=== PATIENT | male | born 1960 | race Caucasian/White ===

== ENCOUNTER 2016-10-14 08:16 | Inpatient (IN) | payer OTHER ==
[~2016-10-14] VITALS: Ht 182.9 cm; Wt 132.7 kg
[~2016-10-14 08:16] MED LIST: ALLOPURINOL300 MG PO; AMOX TR-K CLV1 EAC4 PO; ARTHROTEC 751 TABLET PO; AUGMENTIN875 MG PO; BACTRIM,SEPT1 TABLET PO; CEPHALEXIN500 MG PO; CIPRO250 MG PO; CYCLOBENZAPRINE10 MG PO; DICLOFENAC-MIS1 EAC3 PO; DOCUSATE SODIU100 MG PO; FERROUS SULFAT325 MG PO; FLORASTOR250 MG PO; FUROSEMIDE40 MG PO; FUROSEMIDE80 MG PO; GABAPENTIN300 MG PO; GLUCOPHAGE XR,500 MG PO; GLUCOPHAGE1000 MG PO; GLUCOPHAGE500 MG PO; HUMULIN 70100 UNIT/2 SC; HUMULIN 70100 UNIT/3 SC; KEFLEX500 MG PO; LASIX80 MG PO; LISINOPRIL5 MG PO; LOPRESSOR25 MG PO; METFORMIN HCL500 M1 PO; METFORMIN HCL500 MG PO; METOPROLOL TART25 MG PO; METOPROLOL TART50 MG PO; NAPROSYN500 MG; NOVOLIN,HU100 UNITS/ SC; NOVOLOG MI100 UNIT/2 SQ; NOVOLOG MI100 UNIT/M PO; NOVOLOG MI100 UNIT/M SC; OMEPRAZOLE20 M2 PO; OMEPRAZOLE20 MG PO; OXYCODONE HCL5 MG PO; PANTOPRAZOLE SO40 MG PO; PERCOCET 10/1 TABLET PO; PERCOCET 5/31 TABLET PO; PHENERGAN25 MG PR; PRILOSEC20 MG PO; PRINIVIL5 MG PO; ROCEPHIN 2 GM VI2 GM IV; ROCEPHIN1000 MG IM; ROCEPHIN2 GM/50 ML IV; ROXICODONE5 MG PO; SERTRALINE HCL100 MG PO; SERTRALINE HCL50 MG PO; VANCOMYCIN1 GM/150 M IV; XARELTO20 MG PO; ZESTRIL,PRINIVIL5 MG PO; ZOFRAN4 MG PO; ZYLOPRIM300 MG PO
[2016-10-14 11:30] LABS: EOSINOPHIL (%) 0.2 % (0-5); HEMATOCRIT 36.5 % (38.0-50.0); IMMATURE GRANULOCYTE (%) 0.4 % (0.0-0.7); IMMATURE GRANULOCYTE COUNT 0.6 K/uL; LYMPHOCYTE COUNT 1.3 K/uL (1.0-2.8); MCH 27.3 PG (29.0-34.0); MCV 80.4 FL (86-99); MEAN PLAT.VOLUME 10.5 uM^3 (9.0-12.4); MONOCYTE (%) 3.7 % (3-12); MONOCYTE COUNT 0.6 K/uL (0-0.8); NEUTROPHIL (%) 87.6 % (45-76); NEUTROPHIL COUNT 14.3 K/uL (1.8-6.4); PLATELET COUNT 181 K/uL (156-360); RBC DIS.WIDTH-SD 36.6 % (39-53); RED BLOOD COUNT 4.54 M/uL (4.00-5.50); WHITE BLOOD COUNT 16.3 K/uL (4.1-10.2)
[2016-10-14 11:35] LABS: CHLORIDE 100 mEq/L (99-109); POTASSIUM 4.2 mEq/L (3.7-5.4)
[2016-10-14 11:36] LABS: SODIUM 135 mEq/L (136-147)
[2016-10-14 11:39] LABS: ANION GAP 11 MEQ/L (2-14)
[2016-10-14 11:40] LABS: TOTAL BILIRUBIN 0.7 mg/dL (0.0-1.0)
[2016-10-14 11:41] LABS: ALKALINE PHOSPHATASE 100 IU/L (3-129); GFR ESTIMATE (CALCULATED) 42 mL/min/
[2016-10-14 11:43] LABS: UREA NITROGEN (BUN) 26 mg/dL (9-23)
[2016-10-14 11:44] LABS: GLUCOSE 421 mg/dL (70-99)
[2016-10-14 13:01] LABS: ADD MIUA? YES; BILIRUBIN NEGATIVE; BLOOD MODERATE; COLOR STRAW ((YELLOW)); GLUCOSE (STRIP) >=500; KETONES NEGATIVE; LEUKOCYTES NEGATIVE; NITRITE NEGATIVE; PROTEIN (STRIP) NEGATIVE; SPECIFIC GRAVITY 1.007 (1.000-1.030); UROBILINOGEN 0.2 MG/DL (0.2-1.0)
[2016-10-14 13:08] LABS: BACTERIA NONE SEEN /HPF; EPITHELIAL CELLS NONE SEEN /HPF; HYALINE CASTS 0-5 /LPF; MUCUS TRACE /LPF; RED BLOOD CELLS 0-5 /HPF (0-5); UCUL ADDED? NO; UNCLASSIFIED CASTS 0-5 /LPF; WHITE BLOOD CELLS 0-5 /HPF (0-5)
[2016-10-14 13:09] LABS: CASTS PRESENT /LPF; CRYSTALS NONE SEEN
[2016-10-14] MEDS ORDERED: METOPROLOL TART25 MG PO (14:53)
[2016-10-14] MEDS ORDERED: METFORMIN HCL500 M1 PO (14:54)
[2016-10-14] MEDS ORDERED: LYRICA150 MG PO ×2 (14:55)
[2016-10-14] MEDS ORDERED: TUMERIC PO (14:55)
[2016-10-14] MEDS ORDERED: ZYVOX600 MG PO (14:55)
[2016-10-14 15:38] LABS: POINT-OF-CARE METER ID UU13113702
[2016-10-14 16:51] VITALS: BP 108/59
[2016-10-14 19:50] VITALS: BP 138/87
[2016-10-14 22:16] LABS: POINT-OF-CARE METER ID UU13113717
[2016-10-15 00:24] VITALS: BP 107/61
[2016-10-15 04:06] VITALS: BP 113/56
[2016-10-15 06:00] LABS: HEMATOCRIT 34.3 % (38.0-50.0); MCH 26.5 PG (29.0-34.0); MCHC 32.1 G/DL (30.0-36.0); MCV 82.7 FL (86-99); MEAN PLAT.VOLUME 9.9 uM^3 (9.0-12.4); PLATELET COUNT 142 K/uL (156-360); RBC DIS.WIDTH-CV 13.1 % (11.8-14.6); RBC DIS.WIDTH-SD 39.7 % (39-53); RED BLOOD COUNT 4.15 M/uL (4.00-5.50)
[2016-10-15 06:01] LABS: WHITE BLOOD COUNT 7.5 K/uL (4.1-10.2)
[2016-10-15 06:10] LABS: ANION GAP 7 MEQ/L (2-14); CHLORIDE 101 MEQ/L (99-109); GFR ESTIMATE (CALCULATED) 48 mL/min/; GLUCOSE 120 mg/dL (70-99); POTASSIUM 3.6 MEQ/L (3.7-5.4); SAMPLE HEMOLYSIS CHECK 0; SAMPLE ICTERIC CHECK 0; SAMPLE LIPEMIA CHECK 0; SODIUM 137 MEQ/L (136-147); UREA NITROGEN (BUN) 27 mg/dL (9-23)
[2016-10-15 07:28] LABS: POINT-OF-CARE METER ID UU13113717
[2016-10-15 08:03] VITALS: BP 103/70
[2016-10-15 13:41] LABS: POINT-OF-CARE METER ID UU13113717
[2016-10-15 15:58] VITALS: BP 123/62
[2016-10-15 19:43] VITALS: BP 159/75
[2016-10-15 22:38] LABS: POINT-OF-CARE METER ID UU13113717
[2016-10-15 22:59] VITALS: BP 126/60
[2016-10-16 03:20] VITALS: BP 113/59
[2016-10-16 08:30] VITALS: BP 151/84
[2016-10-16 11:30] VITALS: BP 158/72
[2016-10-16 12:03] LABS: POINT-OF-CARE METER ID UU14188577
[2016-10-16 16:27] VITALS: BP 143/68
[2016-10-16 19:41] VITALS: BP 127/62
[2016-10-16 23:39] VITALS: BP 115/70
[2016-10-17 03:49] VITALS: BP 161/84
[2016-10-17 08:10] VITALS: BP 159/88
[2016-10-17] MEDS ORDERED: LASIX40 MG PO (08:20)
== END 2016-10-17 13:51 | disposition home or self-care (01) | DRG 603 ==
LOC: EME 08:16 → EDOF 14:59 → 3EAST 14:59
PROVIDERS: Internal Medicine; Physician Assistant
DX: L03.115 Cellulitis of right lower limb (principal); E11.43 Type 2 diabetes mellitus with diabetic autonomic (poly)neuropathy; E11.610 Type 2 diabetes mellitus with diabetic neuropathic arthropathy; E11.65 Type 2 diabetes mellitus with hyperglycemia; E11.621 Type 2 diabetes mellitus with foot ulcer; L97.909 Non-pressure chronic ulcer of unspecified part of unspecified lower leg with unspecified severity; I89.0 Lymphedema, not elsewhere classified; I87.2 Venous insufficiency (chronic) (peripheral); I12.9 Hypertensive chronic kidney disease with stage 1 through stage 4 chronic kidney disease, or unspecified chronic kidney disease; N18.3 Chronic kidney disease, stage 3 (moderate); G47.33 Obstructive sleep apnea (adult) (pediatric); I48.2 Chronic atrial fibrillation; K22.70 Barrett's esophagus without dysplasia; Z86.14 Personal history of Methicillin resistant Staphylococcus aureus infection; E66.9 Obesity, unspecified; Z68.39 Body mass index [BMI] 39.0-39.9, adult; Z79.01 Long term (current) use of anticoagulants; Z79.4 Long term (current) use of insulin
CPT/HCPCS: 73700; 78315; 78999; 80048; 80053; 81003; 82948; 83605; 85025; 85027; 87040; 93971; A9503; J0690; J1170; J1815; J2543; J3010; J7030; J7050; J7120

== ENCOUNTER 2017-02-04 09:35 | Inpatient (IN) | payer OTHER ==
[~2017-02-04] VITALS: Ht 182.9 cm; Wt 140.7 kg
[~2017-02-04 09:35] MED LIST changes: +LASIX40 MG PO; +LYRICA150 MG PO; +TUMERIC PO; +ZYVOX600 MG PO
[2017-02-04 10:19] LABS: EOSINOPHIL (%) 0 % (0-5); IMMATURE GRANULOCYTE (%) 0.6 % (0.0-0.7); IMMATURE GRANULOCYTE COUNT 0.1 K/uL; INSTRUMENT ABS NEUTROPHIL CT 15.7 K/uL; LYMPHOCYTE COUNT 0.4 K/uL (1.0-2.8); MCH 26.3 PG (29.0-34.0); MCHC 32.6 G/DL (30.0-36.0); MCV 80.9 FL (86-99); MEAN PLAT.VOLUME 11.3 uM^3 (9.0-12.4); MONOCYTE COUNT 0.9 K/uL (0-0.8); NEUTROPHIL (%) 92.1 % (45-76); NEUTROPHIL COUNT 15.7 K/uL (1.8-6.4); PLATELET COUNT 137 K/uL (156-360); RBC DIS.WIDTH-CV 13.9 % (11.8-14.6); RBC DIS.WIDTH-SD 40.5 % (39-53); RED BLOOD COUNT 4.82 M/uL (4.00-5.50)
[2017-02-04 10:36] LABS: CHLORIDE 98 mEq/L (99-109); POTASSIUM 4.9 mEq/L (3.7-5.4); SODIUM 134 mEq/L (136-147)
[2017-02-04 10:39] LABS: ANION GAP 14 MEQ/L (2-14)
[2017-02-04 10:42] LABS: GFR ESTIMATE (CALCULATED) 42 mL/min/
[2017-02-04 10:43] LABS: UREA NITROGEN (BUN) 27 mg/dL (9-23)
[2017-02-04 11:09] LABS: GLUCOSE 514 mg/dL (70-99)
[2017-02-04 11:27] LABS: ADD MIUA? YES; BILIRUBIN NEGATIVE; BLOOD MODERATE; COLOR YELLOW ((YELLOW)); GLUCOSE (STRIP) >=500; KETONES 20; LEUKOCYTES NEGATIVE; NITRITE NEGATIVE; PROTEIN (STRIP) >=500; SPECIFIC GRAVITY 1.029 (1.000-1.030); UROBILINOGEN 0.2 MG/DL (0.2-1.0)
[2017-02-04 11:33] LABS: BACTERIA NONE SEEN /HPF; EPITHELIAL CELLS NONE SEEN /HPF; MUCUS NONE SEEN /LPF; RED BLOOD CELLS 15-20 /HPF (0-5); UCUL ADDED? NO; WHITE BLOOD CELLS 0-5 /HPF (0-5)
[2017-02-04] MEDS ORDERED: FUROSEMIDE80 MG PO (13:49)
[2017-02-04] MEDS ORDERED: TURMERIC500 MG PO (13:52)
[2017-02-04 14:12] LABS: POINT-OF-CARE METER ID UU13113702
[2017-02-04 17:03] VITALS: BP 165/94
[2017-02-04 20:11] VITALS: BP 147/79
[2017-02-04 20:41] LABS: POINT-OF-CARE METER ID UU14174225
[2017-02-04 23:37] VITALS: BP 112/65
[2017-02-05] VITALS (7 sets, daily range): BP systolic 111–194; BP diastolic 60–98
[2017-02-05 02:29] LABS: POINT-OF-CARE METER ID UU14188625
[2017-02-05 05:21] LABS: EOSINOPHIL (%) 0 % (0-5); HEMATOCRIT 34.8 % (38.0-50.0); IMMATURE GRANULOCYTE (%) 0.9 % (0.0-0.7); IMMATURE GRANULOCYTE COUNT 0.1 K/uL; INSTRUMENT ABS NEUTROPHIL CT 6.6 K/uL; LYMPHOCYTE COUNT 0.5 K/uL (1.0-2.8); MCH 26.3 PG (29.0-34.0); MCHC 32.2 G/DL (30.0-36.0); MCV 81.7 FL (86-99); MEAN PLAT.VOLUME 10.7 uM^3 (9.0-12.4); MONOCYTE (%) 5.6 % (3-12); MONOCYTE COUNT 0.4 K/uL (0-0.8); NEUTROPHIL COUNT 6.6 K/uL (1.8-6.4); PLATELET COUNT 125 K/uL (156-360); RBC DIS.WIDTH-CV 13.8 % (11.8-14.6); RBC DIS.WIDTH-SD 41.1 % (39-53); RED BLOOD COUNT 4.26 M/uL (4.00-5.50)
[2017-02-05 06:00] LABS: WHITE BLOOD COUNT 7.6 K/uL (4.1-10.2)
[2017-02-05 06:55] LABS: ANION GAP 12 MEQ/L (2-14); CHLORIDE 96 MEQ/L (99-109); GFR ESTIMATE (CALCULATED) 48 mL/min/; GLUCOSE 347 mg/dL (70-99); SAMPLE HEMOLYSIS CHECK 0; SAMPLE ICTERIC CHECK 0; SAMPLE LIPEMIA CHECK 0; SODIUM 129 MEQ/L (136-147); UREA NITROGEN (BUN) 24 mg/dL (9-23)
[2017-02-05 07:10] LABS: POTASSIUM 3.9 MEQ/L (3.7-5.4)
[2017-02-05 09:09] LABS: POINT-OF-CARE METER ID UU14174225
[2017-02-05 10:35] LABS: POINT-OF-CARE METER ID UU13113702
[2017-02-05 10:56] LABS: POINT-OF-CARE METER ID UU14174225; POINT-OF-CARE USER ID STWAMT
[2017-02-05 12:56] LABS: METH RESISTANT S AUREUS PCR NEGATIVE (NEGATIVE)
[2017-02-05 13:06] LABS: PROBE CHECK PASS; SPECIMEN PROCESSING CONTROL PASS
[2017-02-06] VITALS (11 sets, daily range): BP systolic 107–190; BP diastolic 58–94
[2017-02-06 05:37] LABS: HEMATOCRIT 37.2 % (38.0-50.0); MCH 27.6 PG (29.0-34.0); MCHC 33.1 G/DL (30.0-36.0); MCV 83.4 FL (86-99); PLATELET COUNT 128 K/uL (156-360); RBC DIS.WIDTH-CV 13.9 % (11.8-14.6); RBC DIS.WIDTH-SD 42.2 % (39-53); RED BLOOD COUNT 4.46 M/uL (4.00-5.50); WHITE BLOOD COUNT 6.9 K/uL (4.1-10.2)
[2017-02-06 06:05] LABS: ANION GAP 13 MEQ/L (2-14); CHLORIDE 100 MEQ/L (99-109); GFR ESTIMATE (CALCULATED) 42 mL/min/; GLUCOSE 202 mg/dL (70-99); POTASSIUM 3.6 MEQ/L (3.7-5.4); SAMPLE HEMOLYSIS CHECK 0; SAMPLE ICTERIC CHECK 0; SAMPLE LIPEMIA CHECK 0; UREA NITROGEN (BUN) 28 mg/dL (9-23)
[2017-02-06 06:06] LABS: SODIUM 137 MEQ/L (136-147)
[2017-02-06 11:50] LABS: TROP-I INTERPRETATION NEGATIVE; TROPONIN-I 0.11 ng/mL (0.0-0.30)
[2017-02-06 17:44] LABS: TROP-I INTERPRETATION NEGATIVE; TROPONIN-I 0.14 ng/mL (0.0-0.30)
[2017-02-06 19:14] LABS: EOSINOPHIL (%) 0.2 % (0-5); HEMATOCRIT 37.7 % (38.0-50.0); IMMATURE GRANULOCYTE (%) 0.8 % (0.0-0.7); IMMATURE GRANULOCYTE COUNT 0.1 K/uL; INSTRUMENT ABS NEUTROPHIL CT 5.5 K/uL; LYMPHOCYTE COUNT 0.4 K/uL (1.0-2.8); MCH 26.6 PG (29.0-34.0); MCHC 32.4 G/DL (30.0-36.0); MCV 82.1 FL (86-99); MEAN PLAT.VOLUME 10.7 uM^3 (9.0-12.4); MONOCYTE (%) 4.2 % (3-12); MONOCYTE COUNT 0.3 K/uL (0-0.8); NEUTROPHIL (%) 88.7 % (45-76); NEUTROPHIL COUNT 5.5 K/uL (1.8-6.4); PLATELET COUNT 115 K/uL (156-360); RBC DIS.WIDTH-CV 13.9 % (11.8-14.6); RBC DIS.WIDTH-SD 41.3 % (39-53); RED BLOOD COUNT 4.59 M/uL (4.00-5.50); WHITE BLOOD COUNT 6.2 K/uL (4.1-10.2)
[2017-02-06 19:23] LABS: CHLORIDE 101 mEq/L (99-109); SODIUM 135 mEq/L (136-147)
[2017-02-06 19:25] LABS: GLUCOSE 269 mg/dL (70-99)
[2017-02-06 19:26] LABS: ANION GAP 8 MEQ/L (2-14)
[2017-02-06 19:29] LABS: GFR ESTIMATE (CALCULATED) 39 mL/min/; UREA NITROGEN (BUN) 29 mg/dL (9-23)
[2017-02-06 23:49] LABS: POINT-OF-CARE METER ID UU14174217; POINT-OF-CARE USER ID LABHNS84
[2017-02-06 23:57] LABS: TROP-I INTERPRETATION INDETERMINATE; TROPONIN-I 0.33 ng/mL (0.0-0.30)
[2017-02-07] VITALS (13 sets, daily range): BP systolic 109–153; BP diastolic 52–106
[2017-02-07 02:05] LABS: METH RESISTANT S AUREUS PCR NEGATIVE (NEGATIVE)
[2017-02-07 02:11] LABS: PROBE CHECK PASS; SPECIMEN PROCESSING CONTROL PASS
[2017-02-07 08:32] LABS: HEMATOCRIT 33.7 % (38.0-50.0); MCH 27.6 PG (29.0-34.0); MCHC 32.6 G/DL (30.0-36.0); MCV 84.5 FL (86-99); MEAN PLAT.VOLUME 11.1 uM^3 (9.0-12.4); PLATELET COUNT 102 K/uL (156-360); RBC DIS.WIDTH-CV 14.1 % (11.8-14.6); RBC DIS.WIDTH-SD 43.6 % (39-53); RED BLOOD COUNT 3.99 M/uL (4.00-5.50); WHITE BLOOD COUNT 8.7 K/uL (4.1-10.2)
[2017-02-07 08:48] LABS: ANION GAP 10 MEQ/L (2-14); CHLORIDE 102 MEQ/L (99-109); GFR ESTIMATE (CALCULATED) 48 mL/min/; GLUCOSE 207 mg/dL (70-99); POTASSIUM 3.9 MEQ/L (3.7-5.4); SAMPLE HEMOLYSIS CHECK 0; SAMPLE ICTERIC CHECK 0; SAMPLE LIPEMIA CHECK 0; SODIUM 137 MEQ/L (136-147); UREA NITROGEN (BUN) 28 mg/dL (9-23)
[2017-02-07 15:18] LABS: TROP-I INTERPRETATION NEGATIVE; TROPONIN-I 0.09 ng/mL (0.0-0.30)
[2017-02-07 16:52] LABS: POINT-OF-CARE METER ID UU14174217
[2017-02-07 22:00] LABS: POINT-OF-CARE METER ID UU13113731; POINT-OF-CARE USER ID LABHNS84
[2017-02-08] VITALS (12 sets, daily range): BP systolic 108–151; BP diastolic 55–94
[2017-02-08 09:35] LABS: POINT-OF-CARE METER ID UU14174217
[2017-02-08 10:42] LABS: HEMATOCRIT 35.2 % (38.0-50.0); MCH 26.3 PG (29.0-34.0); MCHC 31.3 G/DL (30.0-36.0); MEAN PLAT.VOLUME 10.8 uM^3 (9.0-12.4); PLATELET COUNT 144 K/uL (156-360); RBC DIS.WIDTH-CV 14.1 % (11.8-14.6); RBC DIS.WIDTH-SD 43.4 % (39-53); RED BLOOD COUNT 4.19 M/uL (4.00-5.50)
[2017-02-08 11:03] LABS: ANION GAP 10 MEQ/L (2-14); CHLORIDE 101 MEQ/L (99-109); GFR ESTIMATE (CALCULATED) 56 mL/min/; GLUCOSE 164 mg/dL (70-99); POTASSIUM 3.6 MEQ/L (3.7-5.4); SAMPLE HEMOLYSIS CHECK 0; SAMPLE ICTERIC CHECK 0; SAMPLE LIPEMIA CHECK 0; SODIUM 137 MEQ/L (136-147); UREA NITROGEN (BUN) 31 mg/dL (9-23)
[2017-02-08 12:32] LABS: POINT-OF-CARE METER ID UU14174217
[2017-02-08 17:58] LABS: POINT-OF-CARE METER ID UU13113725
[2017-02-08 20:50] LABS: POINT-OF-CARE METER ID UU13113725
[2017-02-09 03:05] VITALS: BP 136/70
[2017-02-09 07:05] VITALS: BP 158/89
[2017-02-09 11:05] VITALS: BP 138/68
[2017-02-09 15:17] VITALS: BP 134/66
[2017-02-09 16:37] LABS: POINT-OF-CARE METER ID UU13113725
[2017-02-09 23:20] VITALS: BP 145/73
[2017-02-10 02:50] VITALS: BP 126/68
[2017-02-10 06:50] LABS: HEMATOCRIT 36.7 % (38.0-50.0); MCH 26.7 PG (29.0-34.0); MCHC 31.9 G/DL (30.0-36.0); MCV 83.8 FL (86-99); MEAN PLAT.VOLUME 10.4 uM^3 (9.0-12.4); PLATELET COUNT 218 K/uL (156-360); RBC DIS.WIDTH-SD 43.2 % (39-53); RED BLOOD COUNT 4.38 M/uL (4.00-5.50); WHITE BLOOD COUNT 9.5 K/uL (4.1-10.2)
[2017-02-10 07:17] LABS: ANION GAP 12 MEQ/L (2-14); CHLORIDE 108 MEQ/L (99-109); GFR ESTIMATE (CALCULATED) > 59 mL/min/; POTASSIUM 3.9 MEQ/L (3.7-5.4); SAMPLE HEMOLYSIS CHECK 0; SAMPLE ICTERIC CHECK 0; SAMPLE LIPEMIA CHECK 0; UREA NITROGEN (BUN) 19 mg/dL (9-23)
[2017-02-10 07:21] LABS: ABS NEUTROPHIL COUNT 6.9; ATYPICAL LYMPHOCYTE 0.9 %; BAND NEUTROPHILS 1.8 % (0-8.0); EOSINOPHIL ABS CT 0.3; EOSINOPHILS 2.7 % (0-5.0); INSTRUMENT ABS NEUTROPHIL CT 6.3 K/uL; LYMPHOCYTES 17.8 % (15.0-45.0); METAMYELOCYTES 2.7 %; MYELOCYTES 0.9 %; PLAT.SUFFICIENCY ADEQUATE; SEG.NEUTROPHILS 70.5 % (46.0-76.0)
[2017-02-10 07:24] LABS: GLUCOSE 94 mg/dL (70-99); SODIUM 144 MEQ/L (136-147)
[2017-02-10 08:15] VITALS: BP 166/90
[2017-02-10 12:00] VITALS: BP 167/73
[2017-02-10 15:33] VITALS: BP 170/90
[2017-02-10 16:15] LABS: POINT-OF-CARE METER ID UU13113725
[2017-02-10 17:54] LABS: POINT-OF-CARE METER ID UU13113675; POINT-OF-CARE USER ID ADMKMM76
[2017-02-10 18:26] VITALS: BP 129/97
[2017-02-10 21:48] LABS: POINT-OF-CARE METER ID UU13113725
[2017-02-11 05:03] LABS: POINT-OF-CARE METER ID UU13113725
[2017-02-11 05:35] LABS: HEMATOCRIT 32.4 % (38.0-50.0); MCHC 31.2 G/DL (30.0-36.0); MCV 83.5 FL (86-99); MEAN PLAT.VOLUME 9.7 uM^3 (9.0-12.4); NRBC (%) 0.2 /100 WBC (0-0); PLATELET COUNT 239 K/uL (156-360); RBC DIS.WIDTH-CV 13.8 % (11.8-14.6); RBC DIS.WIDTH-SD 42.4 % (39-53); RED BLOOD COUNT 3.88 M/uL (4.00-5.50); WHITE BLOOD COUNT 9.1 K/uL (4.1-10.2)
[2017-02-11 06:04] LABS: ANION GAP 12 MEQ/L (2-14); CHLORIDE 108 MEQ/L (99-109); GFR ESTIMATE (CALCULATED) > 59 mL/min/; GLUCOSE 106 mg/dL (70-99); POTASSIUM 3.8 MEQ/L (3.7-5.4); SAMPLE HEMOLYSIS CHECK 0; SAMPLE ICTERIC CHECK 0; SAMPLE LIPEMIA CHECK 0; SODIUM 143 MEQ/L (136-147); UREA NITROGEN (BUN) 16 mg/dL (9-23)
[2017-02-11 06:53] LABS: ABS NEUTROPHIL COUNT 5.9; ANISOCYTOSIS 1+; ATYPICAL LYMPHOCYTE 3.5 %; BASOPHILS 0.9 %; EOSINOPHIL ABS CT 0.5; EOSINOPHILS 5.2 % (0-5.0); INSTRUMENT ABS NEUTROPHIL CT 5.7 K/uL; LYMPHOCYTES 13.9 % (15.0-45.0); MACROCYTES 1+; MICROCYTOSIS 1+; MYELOCYTES 2.6 %; OVALOCYTES 1+; PLAT.SUFFICIENCY ADEQUATE; SEG.NEUTROPHILS 64.3 % (46.0-76.0)
[2017-02-11 07:51] VITALS: BP 148/78
[2017-02-11 11:40] LABS: POINT-OF-CARE METER ID UU13113725
[2017-02-11] MEDS ORDERED: SUMATRIPTAN SUC25 MG PO (14:11)
[2017-02-11] MEDS ORDERED: NORVASC5 MG PO (14:12)
[2017-02-11] MEDS ORDERED: FLAGYL500 MG PO (14:18)
[2017-02-11] MEDS ORDERED: ANCEF,KEFZ2 GM/100 M IV (14:19)
[2017-02-11 15:58] LABS: POINT-OF-CARE METER ID UU13113725
[2017-02-11 16:19] VITALS: BP 130/69
== END 2017-02-11 17:03 | disposition home or self-care (01) | DRG 854 ==
LOC: EME 09:35 → EDOF 13:27 → 5SOUTH 13:27 → 4EAST 02-06 19:06 → 4WEST 02-06 21:16 → 5EAST 02-08 16:46
PROVIDERS: Emergency Medicine; Hospitalist; Internal Medicine; Internal Medicine Infectious Disease; Physician Assistant Medical
PROC: 0JBQ0ZZ Excision of Right Foot Subcutaneous Tissue and Fascia, Open Approach (ICD-10-PCS; principal; 2017-02-10)
DX: A41.9 Sepsis, unspecified organism (principal); R65.20 Severe sepsis without septic shock; L03.115 Cellulitis of right lower limb; E11.621 Type 2 diabetes mellitus with foot ulcer; S91.301A Unspecified open wound, right foot, initial encounter; L02.611 Cutaneous abscess of right foot; L97.509 Non-pressure chronic ulcer of other part of unspecified foot with unspecified severity; L97.809 Non-pressure chronic ulcer of other part of unspecified lower leg with unspecified severity; E11.628 Type 2 diabetes mellitus with other skin complications; M14.679 Charcot's joint, unspecified ankle and foot; E11.622 Type 2 diabetes mellitus with other skin ulcer; E11.42 Type 2 diabetes mellitus with diabetic polyneuropathy; E11.65 Type 2 diabetes mellitus with hyperglycemia; E11.22 Type 2 diabetes mellitus with diabetic chronic kidney disease; I12.9 Hypertensive chronic kidney disease with stage 1 through stage 4 chronic kidney disease, or unspecified chronic kidney disease; L84 Corns and callosities; M10.9 Gout, unspecified; E66.01 Morbid (severe) obesity due to excess calories; Z68.41 Body mass index [BMI] 40.0-44.9, adult; I89.0 Lymphedema, not elsewhere classified; Z79.01 Long term (current) use of anticoagulants; I48.2 Chronic atrial fibrillation; I87.8 Other specified disorders of veins; I87.2 Venous insufficiency (chronic) (peripheral); K21.9 Gastro-esophageal reflux disease without esophagitis; G43.009 Migraine without aura, not intractable, without status migrainosus; G47.33 Obstructive sleep apnea (adult) (pediatric); N18.3 Chronic kidney disease, stage 3 (moderate); B95.62 Methicillin resistant Staphylococcus aureus infection as the cause of diseases classified elsewhere; Z79.4 Long term (current) use of insulin; Z86.14 Personal history of Methicillin resistant Staphylococcus aureus infection; Z82.49 Family history of ischemic heart disease and other diseases of the circulatory system; Z80.1 Family history of malignant neoplasm of trachea, bronchus and lung
CPT/HCPCS: 70450; 71010; 71020; 73630; 73700; 76937; 78315; 80048; 80048 91; 80202; 81003; 82948; 83605; 84484; 85025; 85027; 85651; 86140; 87040; 87070; 87075; 87076; 87077; 87116; 87147; 87185; 87186; 87205; 87641; 87801; 93005; 93970; 94799; 99281; 99285; A6260; A9503; J0690; J1200; J1815; J1885; J2250; J2405; J2543; J2765; J3010; J3370; J7030; J7050

== ENCOUNTER 2017-06-22 11:30 | Observation (INO) | payer OTHER ==
[~2017-06-22] VITALS: Ht 182.9 cm; Wt 145.0 kg
[~2017-06-22 11:30] MED LIST changes: +ANCEF,KEFZ2 GM/100 M IV; +FLAGYL500 MG PO; +NORVASC5 MG PO; +SUMATRIPTAN SUC25 MG PO; +TURMERIC500 MG PO
[2017-06-22 12:27] LABS: HEMATOCRIT 35.5 % (38.0-50.0); MCH 26.9 PG (29.0-34.0); MCV 81.6 FL (86-99); PLATELET COUNT 158 K/uL (156-360); RBC DIS.WIDTH-CV 13.7 % (11.8-14.6); RBC DIS.WIDTH-SD 40.6 % (39-53); RED BLOOD COUNT 4.35 M/uL (4.00-5.50)
[2017-06-22 12:38] LABS: CHLORIDE 102 mEq/L (99-109); POTASSIUM 4.1 mEq/L (3.7-5.4); SODIUM 140 mEq/L (136-147)
[2017-06-22 12:40] LABS: GLUCOSE 321 mg/dL (70-99)
[2017-06-22 12:41] LABS: INTER. NORMALIZED RATIO 1.2; PROTHROMBIN TIME 13.7 SEC (10.2-12.9)
[2017-06-22 12:41] LABS: ANION GAP 16 MEQ/L (2-14)
[2017-06-22 12:44] LABS: GFR ESTIMATE (CALCULATED) > 59 mL/min/
[2017-06-22 12:44] LABS: PTT 33.6 SEC (25-37)
[2017-06-22 12:45] LABS: UREA NITROGEN (BUN) 20 mg/dL (9-23)
[2017-06-22 13:36] LABS: ERTH.SED.RATE 82 MM/HR (0-20)
[2017-06-22] MEDS ORDERED: REGRANEX TP (15:15)
[2017-06-22 17:43] VITALS: BP 153/93
[2017-06-22 19:20] VITALS: BP 152/77
[2017-06-22 21:22] LABS: POINT-OF-CARE METER ID UU14188625
[2017-06-22 23:56] VITALS: BP 145/82
[2017-06-23 03:38] VITALS: BP 129/61
[2017-06-23 06:56] LABS: HEMATOCRIT 36.4 % (38.0-50.0); MCH 26.2 PG (29.0-34.0); MCHC 31.9 G/DL (30.0-36.0); MCV 82.4 FL (86-99); MEAN PLAT.VOLUME 10.4 uM^3 (9.0-12.4); PLATELET COUNT 167 K/uL (156-360); RBC DIS.WIDTH-CV 13.8 % (11.8-14.6); RBC DIS.WIDTH-SD 41.1 % (39-53); RED BLOOD COUNT 4.42 M/uL (4.00-5.50); WHITE BLOOD COUNT 8.1 K/uL (4.1-10.2)
[2017-06-23 07:17] LABS: GFR ESTIMATE (CALCULATED) > 59 mL/min/
[2017-06-23 07:27] VITALS: BP 183/83
[2017-06-23 10:55] LABS: POINT-OF-CARE METER ID UU14188625
[2017-06-23 12:28] VITALS: BP 135/84
[2017-06-23 12:53] LABS: POINT-OF-CARE METER ID UU13113717
[2017-06-23 15:49] VITALS: BP 136/75
[2017-06-23 17:20] LABS: POINT-OF-CARE METER ID UU14188625
[2017-06-23 19:19] VITALS: BP 152/85
[2017-06-23 21:32] LABS: POINT-OF-CARE METER ID UU14188625
[2017-06-24 00:13] VITALS: BP 121/76
[2017-06-24 03:44] VITALS: BP 144/81
[2017-06-24 08:00] VITALS: BP 123/77
[2017-06-24 08:57] LABS: POINT-OF-CARE METER ID UU14174225
[2017-06-24 12:16] LABS: POINT-OF-CARE METER ID UU14174225
== END 2017-06-24 13:06 | disposition home or self-care (01) ==
LOC: EME 11:30 → 5SOUTH 14:55 → EDOF 14:55 → ENRESERV 14:58 → 5SOUTH 17:20
PROVIDERS: Emergency Medicine; Internal Medicine
DX: L03.115 Cellulitis of right lower limb (principal); T81.89XA Other complications of procedures, not elsewhere classified, initial encounter; S81.801A Unspecified open wound, right lower leg, initial encounter; S91.302A Unspecified open wound, left foot, initial encounter; L97.821 Non-pressure chronic ulcer of other part of left lower leg limited to breakdown of skin; W22.8XXA Striking against or struck by other objects, initial encounter; R60.0 Localized edema; E11.65 Type 2 diabetes mellitus with hyperglycemia; E11.42 Type 2 diabetes mellitus with diabetic polyneuropathy; E11.610 Type 2 diabetes mellitus with diabetic neuropathic arthropathy; E11.69 Type 2 diabetes mellitus with other specified complication; Z79.4 Long term (current) use of insulin; I48.91 Unspecified atrial fibrillation; K22.70 Barrett's esophagus without dysplasia; Z86.19 Personal history of other infectious and parasitic diseases; E66.01 Morbid (severe) obesity due to excess calories; Z68.41 Body mass index [BMI] 40.0-44.9, adult; G89.29 Other chronic pain; G47.30 Sleep apnea, unspecified; K21.9 Gastro-esophageal reflux disease without esophagitis; I10 Essential (primary) hypertension; M10.9 Gout, unspecified; Z87.19 Personal history of other diseases of the digestive system; D64.9 Anemia, unspecified; Z86.14 Personal history of Methicillin resistant Staphylococcus aureus infection; Z79.01 Long term (current) use of anticoagulants; Z98.890 Other specified postprocedural states; Z87.442 Personal history of urinary calculi; E78.5 Hyperlipidemia, unspecified
CPT/HCPCS: 73630; 80048; 82565; 82948; 83605; 85027; 85610; 85651; 85730; 87040; 90686; 93971; 99281; 99285; G0378; J1815; J1956; J3370; J7030

== ENCOUNTER 2018-02-21 16:03 | Emergency (ER) | payer OTHER ==
[~2018-02-21] VITALS: Ht 182.9 cm; Wt 145.5 kg
[~2018-02-21 16:03] MED LIST changes: +REGRANEX TP
[2018-02-21 16:38] LABS: BASOPHIL (%) 0.4 % (0-1); EOSINOPHIL (%) 0.7 % (0-5); EOSINOPHIL COUNT 0.1 K/uL (0-0.3); HEMOGLOBIN 12.9 G/DL (12.5-16.6); IMMATURE GRANULOCYTE (%) 0.4 % (0.0-0.7); LYMPHOCYTE (%) 11.5 % (15-42); LYMPHOCYTE COUNT 0.9 K/uL (1.0-2.8); MCH 27.4 PG (29.0-34.0); MCHC 33.9 G/DL (30.0-36.0); MCV 80.7 FL (86-99); MONOCYTE (%) 2.9 % (3-12); MONOCYTE COUNT 0.2 K/uL (0-0.8); NEUTROPHIL (%) 84.1 % (45-76); NEUTROPHIL COUNT 6.3 K/uL (1.8-6.4); PLATELET COUNT 179 K/uL (156-360); RBC DIS.WIDTH-CV 13.2 % (11.8-14.6); RBC DIS.WIDTH-SD 38.5 % (39-53); RED BLOOD COUNT 4.71 M/uL (4.00-5.50); WHITE BLOOD COUNT 7.5 K/uL (4.1-10.2)
[2018-02-21 16:46] LABS: CHLORIDE 99 mEq/L (99-109); POTASSIUM 4.8 mEq/L (3.7-5.4); SODIUM 140 mEq/L (136-147)
[2018-02-21 16:48] LABS: GLUCOSE 385 mg/dL (70-99)
[2018-02-21 16:52] LABS: CREATININE 1.8 mg/dL (0.6-1.3); GFR ESTIMATE (CALCULATED) 42 mL/min/ (58.99-99999); UREA NITROGEN (BUN) 23 mg/dL (9-23)
[2018-02-21 18:13] LABS: ALBUMIN 4.2 g/dL (3.2-4.8)
[2018-02-21 18:16] LABS: TOTAL PROTEIN 8.1 g/dL (6.4-8.3)
[2018-02-21 18:18] LABS: TOTAL BILIRUBIN 0.7 mg/dL (0.0-1.0)
[2018-02-21 18:19] LABS: ALKALINE PHOSPHATASE 111 IU/L (3-129)
[2018-02-21 18:21] LABS: AST (GOT) 27 IU/L (2-34); DIRECT BILIRUBIN 0.2 mg/dL (0.0-0.3)
[2018-02-21 18:22] LABS: ALT (GPT) 14 IU/L (3-49)
[2018-02-21 18:29] LABS: TROP-I INTERPRETATION NEGATIVE; TROPONIN-I < 0.01 ng/mL (0.0-0.30)
[2018-02-21 18:40] LABS: APPEARANCE CLEAR ((CLEAR)); BILIRUBIN NEGATIVE; BLOOD MODERATE; COLOR YELLOW ((YELLOW)); GLUCOSE (STRIP) >=500; KETONES NEGATIVE; LEUKOCYTES NEGATIVE; NITRITE NEGATIVE; PROTEIN (STRIP) >=500; SPECIFIC GRAVITY 1.021 (1.000-1.030); UROBILINOGEN 0.2 MG/DL (0.2-1.0)
[2018-02-21 18:43] LABS: BACTERIA NONE SEEN /HPF; EPITHELIAL CELLS NONE SEEN /HPF; MUCUS NONE SEEN /LPF; RED BLOOD CELLS 15-20 /HPF (0-5); UCUL ADDED? NO; WHITE BLOOD CELLS 0-5 /HPF (0-5)
[2018-02-21 20:01] LABS: LIPASE 23 U/L (1.0-51.0)
[2018-02-21] MEDS ORDERED: ZOFRAN ODT4 MG PO (20:23)
[2018-02-21 20:32] VITALS: BP 164/92
== END 2018-02-21 20:33 | disposition home or self-care (01) ==
LOC: EME 16:03
DX: R11.2 Nausea with vomiting, unspecified (principal); I12.9 Hypertensive chronic kidney disease with stage 1 through stage 4 chronic kidney disease, or unspecified chronic kidney disease; N17.9 Acute kidney failure, unspecified; N18.9 Chronic kidney disease, unspecified; I44.0 Atrioventricular block, first degree; R94.31 Abnormal electrocardiogram [ECG] [EKG]; E11.22 Type 2 diabetes mellitus with diabetic chronic kidney disease; E11.40 Type 2 diabetes mellitus with diabetic neuropathy, unspecified; K21.9 Gastro-esophageal reflux disease without esophagitis; E78.5 Hyperlipidemia, unspecified; M10.9 Gout, unspecified; F41.9 Anxiety disorder, unspecified; F32.9 Major depressive disorder, single episode, unspecified; Z79.4 Long term (current) use of insulin; Z79.84 Long term (current) use of oral hypoglycemic drugs; Z79.01 Long term (current) use of anticoagulants; Z87.442 Personal history of urinary calculi; Z86.79 Personal history of other diseases of the circulatory system; Z86.19 Personal history of other infectious and parasitic diseases; Z98.890 Other specified postprocedural states; Z88.5 Allergy status to narcotic agent
CPT/HCPCS: 71046; 80048; 80076; 81003; 83605; 83690; 84484; 85025; 93005; 99281; 99285; J2405; J7030

== ENCOUNTER 2018-02-23 14:01 | Observation (INO) | payer OTHER ==
[~2018-02-23] VITALS: Ht 182.9 cm; Wt 143.2 kg
[~2018-02-23 14:01] MED LIST changes: +ZOFRAN ODT4 MG PO
[2018-02-23 14:48] LABS: HEMATOCRIT 37.2 % (38.0-50.0); HEMOGLOBIN 12.6 G/DL (12.5-16.6); MCH 27.2 PG (29.0-34.0); MCHC 33.9 G/DL (30.0-36.0); MCV 80.3 FL (86-99); PLATELET COUNT 160 K/uL (156-360); RBC DIS.WIDTH-CV 13.3 % (11.8-14.6); RED BLOOD COUNT 4.63 M/uL (4.00-5.50); WHITE BLOOD COUNT 7.7 K/uL (4.1-10.2)
[2018-02-23 15:01] LABS: ALBUMIN 4.1 g/dL (3.2-4.8)
[2018-02-23 15:04] LABS: TOTAL PROTEIN 7.8 g/dL (6.4-8.3)
[2018-02-23 15:06] LABS: TOTAL BILIRUBIN 0.8 mg/dL (0.0-1.0)
[2018-02-23 15:07] LABS: ALKALINE PHOSPHATASE 105 IU/L (3-129)
[2018-02-23 15:10] LABS: ALT (GPT) 13 IU/L (3-49); AST (GOT) 26 IU/L (2-34); DIRECT BILIRUBIN 0.3 mg/dL (0.0-0.3)
[2018-02-23 15:11] LABS: LIPASE 22 U/L (1.0-51.0)
[2018-02-23 16:17] LABS: APPEARANCE CLEAR ((CLEAR)); BILIRUBIN NEGATIVE; BLOOD MODERATE; COLOR YELLOW ((YELLOW)); GLUCOSE (STRIP) >=500; KETONES NEGATIVE; LEUKOCYTES NEGATIVE; NITRITE NEGATIVE; PROTEIN (STRIP) 100; SPECIFIC GRAVITY 1.015 (1.000-1.030); UROBILINOGEN 0.2 MG/DL (0.2-1.0)
[2018-02-23 16:30] LABS: BACTERIA NONE SEEN /HPF; EPITHELIAL CELLS NONE SEEN /HPF; HYALINE CASTS 0-5 /LPF; MUCUS NONE SEEN /LPF; UCUL ADDED? NO; WHITE BLOOD CELLS 0-5 /HPF (0-5)
[2018-02-23 16:33] LABS: CHLORIDE 100 mEq/L (99-109); POTASSIUM 4.2 mEq/L (3.7-5.4); SODIUM 139 mEq/L (136-147)
[2018-02-23 16:35] LABS: GLUCOSE 338 mg/dL (70-99)
[2018-02-23 16:39] LABS: CREATININE 1.9 mg/dL (0.6-1.3); GFR ESTIMATE (CALCULATED) 39 mL/min/ (58.99-99999)
[2018-02-23 16:40] LABS: UREA NITROGEN (BUN) 23 mg/dL (9-23)
[2018-02-23] MEDS ORDERED: HUMALOG MI100 UNIT/1 SC (20:20)
[2018-02-23] MEDS ORDERED: BACTRIM,SEPT1 TABLET PO (20:21)
[2018-02-23] MEDS ORDERED: PERCOCET 10/1 TABLET PO (20:21)
[2018-02-23 23:21] VITALS: BP 176/89
[2018-02-24 05:46] LABS: BASOPHIL (%) 0.6 % (0-1); EOSINOPHIL (%) 2.9 % (0-5); EOSINOPHIL COUNT 0.2 K/uL (0-0.3); HEMATOCRIT 35.3 % (38.0-50.0); HEMOGLOBIN 11.3 G/DL (12.5-16.6); IMMATURE GRANULOCYTE (%) 0.5 % (0.0-0.7); LYMPHOCYTE (%) 24.8 % (15-42); LYMPHOCYTE COUNT 1.6 K/uL (1.0-2.8); MCH 26.5 PG (29.0-34.0); MCV 82.7 FL (86-99); MONOCYTE (%) 8.9 % (3-12); MONOCYTE COUNT 0.6 K/uL (0-0.8); NEUTROPHIL (%) 62.3 % (45-76); NEUTROPHIL COUNT 3.9 K/uL (1.8-6.4); PLATELET COUNT 157 K/uL (156-360); RBC DIS.WIDTH-CV 13.3 % (11.8-14.6); RED BLOOD COUNT 4.27 M/uL (4.00-5.50); WHITE BLOOD COUNT 6.3 K/uL (4.1-10.2)
[2018-02-24 06:42] LABS: CHLORIDE 106 MEQ/L (99-109); CREATININE 1.5 MG/DL (0.6-1.3); GFR ESTIMATE (CALCULATED) 51 mL/min/ (58.99-99999); GLUCOSE 238 mg/dL (70-99); POTASSIUM 4.2 MEQ/L (3.7-5.4); SODIUM 141 MEQ/L (136-147); UREA NITROGEN (BUN) 19 mg/dL (9-23)
[2018-02-24 07:52] VITALS: BP 144/82
[2018-02-24 11:59] VITALS: BP 148/78
[2018-02-24] MEDS ORDERED: HUMALOG MI100 UNIT/1 SC (12:57)
[2018-02-24] MEDS ORDERED: ZOFRAN4 MG PO (15:40)
== END 2018-02-24 22:19 | disposition home or self-care (01) ==
LOC: EME 14:01 → EDOF 22:11 → 4SOUTH 22:11 → EDOF 22:11 → ENRESERV 22:12 → 4SOUTH 23:10
PROVIDERS: Emergency Medicine; Hospitalist
DX: N17.9 Acute kidney failure, unspecified (principal); E11.65 Type 2 diabetes mellitus with hyperglycemia; E11.40 Type 2 diabetes mellitus with diabetic neuropathy, unspecified; E11.22 Type 2 diabetes mellitus with diabetic chronic kidney disease; I12.9 Hypertensive chronic kidney disease with stage 1 through stage 4 chronic kidney disease, or unspecified chronic kidney disease; N18.3 Chronic kidney disease, stage 3 (moderate); E11.610 Type 2 diabetes mellitus with diabetic neuropathic arthropathy; E11.621 Type 2 diabetes mellitus with foot ulcer; L97.511 Non-pressure chronic ulcer of other part of right foot limited to breakdown of skin; I48.91 Unspecified atrial fibrillation; K21.9 Gastro-esophageal reflux disease without esophagitis; G47.33 Obstructive sleep apnea (adult) (pediatric); E66.01 Morbid (severe) obesity due to excess calories; Z68.41 Body mass index [BMI] 40.0-44.9, adult; K22.70 Barrett's esophagus without dysplasia; G89.29 Other chronic pain; E78.5 Hyperlipidemia, unspecified; M10.9 Gout, unspecified; G43.809 Other migraine, not intractable, without status migrainosus; E87.0 Hyperosmolality and hypernatremia; Z79.4 Long term (current) use of insulin; Z88.5 Allergy status to narcotic agent
CPT/HCPCS: 71045; 74176; 80048; 80076; 81003; 82800; 82948; 83690; 83930; 85025; 85027; 87040; 87081; 87641; 93005; 94799; 99281; 99285; A6214; G0378; J1200; J1815; J2405; J2550; J2765; J7030